=== PATIENT | male | born 1970 | race Caucasian/White ===

== ENCOUNTER 2016-08-29 09:17 | Emergency (ER) | payer OTHER ==
[~2016-08-29] VITALS: Ht 182.9 cm; Wt 77.7 kg
[2016-08-29 09:22] VITALS: TEMP 37; Ht 182.9 cm; Wt 77.7 kg
--- NOTE | 2016-08-29 09:53 | EMERGENCY ROOM VISIT NOTE ---
History Report prepared by Elizabeth: Pawel Romero Under the Supervision of: Dr. Loan Smith M.D. First contact with patient: 09:31 Chief Complaint: LEG PAIN,LEG INJURY Stated Complaint: POSSIBLE BLOOD CLOTS/LLE History of Present Illness The patient is a 46 year old male who presents to the Emergency Room with complaints of persistent left lower leg pain that started 5 days ago. The patient thinks he has a blood clot because he has a history of them. He was on Xarelto in the past. He stopped taking this medication a month ago. He recently restarted treatment on Coumadin last week. He denies chest pain or shortness of breath at this time. Source of History: patient Onset: 5 days ago Position: leg (left) Timing: other (persistent) Associated Symptoms: No SOB, No chest pain Review of Systems See HPI for pertinent positives & negatives. A total of 10 systems reviewed and were otherwise negative. Past Medical & Surgical Medical Problems: (1) DVT (deep venous thrombosis) Family History No pertinent family history Social History Smoking Status: Current Every Day Smoker Housing Status: other Occupation Status: unemployed Current/Historical Medications Scheduled Warfarin Sod (Jantoven), 7.5 MG PO DAILY Miscellaneous Medications Ketoconazole (Nizoral), 1 % TD Allergies Uncoded Allergies: NO KNOWN ALLERGIES (Allergy, Unknown, ., 08/29/16) Physical Exam Vital Signs Date Time Temp Pulse Resp B/P Pulse Ox O2 Delivery O2 Flow Rate FiO2 08/29/16 12:59 61 18 128/80 99 08/29/16 10:54 57 18 131/71 100 Room Air 08/29/16 09:22 37.0 87 20 147/104 99 Room Air Physical Exam Vital signs reviewed. General: Somewhat disheveled-appearing male, in no significant distress. HEENT: No scleral icterus, PERRLA, neck supple. Atraumatic. Cardiovascular: Regular rate and rhythm, no extra sounds. Pulmonary: Clear to auscultation bilaterally, normal work of breathing. Abdomen: Soft, nontender, nondistended, positive bowel sounds. Musculoskeletal: Palpable cord along medial left thigh with some tenderness. Neurologic: Patient awake alert and oriented x 3, full strength in all 4 extremities. Cranial nerves 2 through 12 grossly intact. Skin: Warm, dry, no rash Medical Decision & Procedures ER Provider Diagnostic Interpretation: US results as stated below per my review and radiologist interpretation: ULTRASOUND LEFT LOWER EXTREMITY VENOUS CLINICAL HISTORY: Left leg pain and swelling. COMPARISON STUDY: No priors. TECHNIQUE: Real-time, grayscale, and color Doppler sonography of the deep veins of the left lower extremity was performed from the inguinal crease to the calf. Compression and augmentation were utilized. FINDINGS: There is age indeterminant and possibly chronic deep venous thrombosis identified within the diminutive superficial femoral and popliteal veins. The common femoral vein is patent and normally compressible. The greater saphenous vein at the junction with the common femoral vein appear clear. Nonocclusive thrombus is seen within the profunda femoris vein. The visualized calf veins are patent. IMPRESSION: 1. There is age indeterminant and possibly chronic nonocclusive deep venous thrombosis identified throughout the left superficial femoral vein and within the left popliteal vein. The vessels appear diminutive. 2. Nonocclusive superficial venous thrombus is seen within the left profunda femoris vein. Electronically signed by: Osei Guillory M.D. 08/29/2016 12:02 PM Dictated Date/Time: 08/29/2016 12:00 PM Laboratory Results 08/29/16 10:20 Red Blood Count 4.07, Mean Corpuscular Volume 98.3, Mean Corpuscular Hemoglobin 34.9, Mean Corpuscular Hemoglobin Concent 35.5, Mean Platelet Volume 9.7, Neutrophils (%) (Auto) 44.5, Lymphocytes (%) (Auto) 43.5, Monocytes (%) (Auto) 8.5, Eosinophils (%) (Auto) 3.2, Basophils (%) (Auto) 0.3, Neutrophils # (Auto) 1.51, Lymphocytes # (Auto) 1.48, Monocytes # (Auto) 0.29, Eosinophils # (Auto) 0.11, Basophils # (Auto) 0.01 08/29/16 10:20 Test 08/29/16 10:20 White Blood Count 3.40 K/uL (4.8-10.8) Red Blood Count 4.07 M/uL (4.7-6.1) Hemoglobin 14.2 g/dL (14.0-18.0) Hematocrit 40.0 % (42-52) Mean Corpuscular Volume 98.3 fL (80-100) Mean Corpuscular Hemoglobin 34.9 pg (25-34) Mean Corpuscular Hemoglobin Concent 35.5 g/dl (32-36) Platelet Count 164 K/uL (130-400) Mean Platelet Volume 9.7 fL (7.4-10.4) Neutrophils (%) (Auto) 44.5 % Lymphocytes (%) (Auto) 43.5 % Monocytes (%) (Auto) 8.5 % Eosinophils (%) (Auto) 3.2 % Basophils (%) (Auto) 0.3 % Neutrophils # (Auto) 1.51 K/uL (1.4-6.5) Lymphocytes # (Auto) 1.48 K/uL (1.2-3.4) Monocytes # (Auto) 0.29 K/uL (0.11-0.59) Eosinophils # (Auto) 0.11 K/uL (0-0.5) Basophils # (Auto) 0.01 K/uL (0-0.2) RDW Standard Deviation 43.8 fL (36.4-46.3) RDW Coefficient of Variation 12.2 % (11.5-14.5) Immature Granulocyte % (Auto) 0.0 % Immature Granulocyte # (Auto) 0.00 K/uL (0.00-0.02) Prothrombin Time 37.0 SECONDS (9.0-12.0) Prothromb Time International Ratio 3.3 (0.9-1.1) Activated Partial Thromboplast Time 34.8 SECONDS (21.0-31.0) Partial Thromboplastin Ratio 1.3 Anion Gap 3.0 mmol/L (3-11) Est Creatinine Clear Calc Drug Dose 94.1 ml/min Estimated GFR () 94.1 Estimated GFR (Non- 81.2 BUN/Creatinine Ratio 9.5 (10-20) Calcium Level 9.2 mg/dl (8.5-10.1) Total Bilirubin 0.5 mg/dl (0.2-1) Direct Bilirubin < 0.1 mg/dl (0-0.2) Aspartate Amino Transf (AST/SGOT) 20 U/L (15-37) Alanine Aminotransferase (ALT/SGPT) 25 U/L (12-78) Alkaline Phosphatase 39 U/L (45-117) Total Protein 7.8 gm/dl (6.4-8.2) Albumin 4.3 gm/dl (3.4-5.0) Laboratory results per my review. ED Course 0938: Past medical records reviewed. The patient was evaluated in room B2. A complete history and physical examination was performed. 1132: Upon reevaluation, the patient appeared to have improvement of his symptoms. I discussed findings with him. He verbalized agreement of the treatment plan. The patient was discharged home. Medical Decision Differential diagnosis: Etiologies such as DVT, musculoskeletal, infection, joint effusion, trauma, lymphedema, idiopathic, CHF, as well as others were entertained.. This pt was evaluated and appeared to be in no distress. PE is significant for a tenderness and phlebitis of the medial LLE. US is read as above, positive for DVT of undetermined chronicity. He only recently started his coumadin and is therapeutic today. I suspect this clot weaver prior to therapeutic coumadin dosing as pt was off anticoagulation for >1 month. He was informed of the findings. He will continue coumadin and will f.u with skilled nursing physician for INR management. Impression Primary Impression: DVT (deep venous thrombosis) Scribe Attestation The scribe's documentation has been prepared under my direction and personally reviewed by me in its entirety. I confirm that the note above accurately reflects all work, treatment, procedures, and medical decision making performed by me. Departure Information Dispostion Home / Self-Care Referrals Umberto LEE (PCP) Forms HOME CARE DOCUMENTATION FORM, IMPORTANT VISIT INFORMATION Patient Instructions My [facility] Additional Instructions Please continue coumadin management as directed by skilled nursing doctor. Have your INR followed closely. Return to ED for worsening of symptoms or any medical concerns. Problem Qualifiers Primary Impression: DVT (deep venous thrombosis) DVT location: lower extremity Laterality: left Chronicity: unspecified
[2016-08-29] MEDS ORDERED: WARF7.5T4 PO (09:56)
[2016-08-29] MEDS ORDERED: KETO200T TD (09:56)
[2016-08-29 10:33] LABS: BASO % 0.3 %; BASO ABS # 0.01 K/uL (0-0.2); COMPLETE YES; EOS % 3.2 %; LYMPH % 43.5 %; LYMPH ABS # 1.48 K/uL (1.2-3.4); MEAN CELL VOLUME 98.3 fL (80-100); MEAN CORPUSCULAR HEMOGLOBIN 34.9 pg (25-34); MEAN CORPUSCULAR HGB CONC 35.5 g/dl (32-36); MEAN PLATELET VOLUME 9.7 fL (7.4-10.4); MONO % 8.5 %; NEUT % 44.5 %; PLATELET COUNT 164 K/uL (130-400); RED BLOOD COUNT 4.07 M/uL (4.7-6.1)
[2016-08-29 10:43] LABS: INR 3.3 (0.9-1.1); PARTIAL THROMBOPLASTIN RATIO 1.3
[2016-08-29 10:52] LABS: ALT/SGPT 25 U/L (12-78); AST/SGOT 20 U/L (15-37); BLOOD UREA NITROGEN 10 mg/dl (7-18); BUN/CREATININE RATIO 9.5 (10-20); CALCIUM 9.2 mg/dl (8.5-10.1); CARBON DIOXIDE 31 mmol/L (21-32); CHLORIDE 106 mmol/L (98-107); GLUCOSE 83 mg/dl (70-99); POTASSIUM 4.2 mmol/L (3.5-5.1); SODIUM 140 mmol/L (136-145)
[2016-08-29 10:55] LABS: ALKALINE PHOSPHATASE 39 U/L (45-117)
--- NOTE | 2016-08-29 12:03 | DIAGNOSTIC IMAGING REPORT ---
ULTRASOUND LEFT LOWER EXTREMITY VENOUS CLINICAL HISTORY: Left leg pain and swelling. COMPARISON STUDY: No priors. TECHNIQUE: Real-time, grayscale, and color Doppler sonography of the deep veins of the left lower extremity was performed from the inguinal crease to the calf. Compression and augmentation were utilized. FINDINGS: There is age indeterminant and possibly chronic deep venous thrombosis identified within the diminutive superficial femoral and popliteal veins. The common femoral vein is patent and normally compressible. The greater saphenous vein at the junction with the common femoral vein appear clear. Nonocclusive thrombus is seen within the profunda femoris vein. The visualized calf veins are patent. IMPRESSION: 1. There is age indeterminant and possibly chronic nonocclusive deep venous thrombosis identified throughout the left superficial femoral vein and within the left popliteal vein. The vessels appear diminutive. 2. Nonocclusive superficial venous thrombus is seen within the left profunda femoris vein. Electronically signed by: Osei Guillory M.D. 08/29/2016 12:02 PM Dictated Date/Time: 08/29/2016 12:00 PM
[2016-08-29 12:59] VITALS: BP 128/80; PULSE 61; O2SAT 99
== END 2016-08-29 13:00 | disposition home or self-care (01) ==
LOC: C.EDB 09:20
DX: I82.4Z2 Acute embolism and thrombosis of unspecified deep veins of left distal lower extremity (principal); Z86.718 Personal history of other venous thrombosis and embolism; F17.210 Nicotine dependence, cigarettes, uncomplicated; Z79.01 Long term (current) use of anticoagulants